=== PATIENT | female | born 1960 | race Caucasian/White ===

== ENCOUNTER → 2017-05-20 | Outpatient (CLI) | payer OTHER ==
[~2017-05-20] VITALS: Ht 172.7 cm; Wt 83.9 kg
[~2017-05-20] MED LIST: ENBREL SQ; ENBREL50 MG/1 ML SUBQ; IBUPROFEN 400400 M1 OR; IMODIUM A-D2 MG PO; LOMOTIL TABLET1 EACH PO; RITALIN PO; ZOFRAN ODT4 MG PO
--- NOTE | ~2017-05-20 | S ---
[facility] [place] [address] SURGICAL PATH RPT PROCEDURE Name: ADITHYA MANN Room #: REG CLRaymundo HewittMaggi.#: [id number] Admission: 05/20/17 Date of : 62 Discharge: Report #: [id number] Path Case #: [id number] PATHOLOGY REPORT COLLECTION DATE: 05/20/2017 RECEIVED DATE: 05/20/2017 SUBMITTING PHYS: Dr. Wilber Reed OTHER PHYS: Dr. Kathia Hathaway SPECIMEN(S) RECEIVED: A.Biopsy of anal verge * * * * * * * * * * * * FINAL DIAGNOSIS: "Biopsy of anal verge", biopsy: - Small bowel / colonic mucosa with reactive changes and glandular architectural disarray consistent with previous anastomosis site and reactive appearing lymphoid aggregates; no significant inflammation or dysplasia seen. (CLW:hakeem; 05/23/2017) PATHOLOGIST: Liyah Mcgill M.D. REPORT ELECTRONICALLY SIGNED BY: Liyah Mcgill M.D. DATE/TIME: 05/23/2017 22:15 * * * * * * * * * * * * GROSS PATHOLOGY: Received in formalin labeled "Adithya Mann BX of anal verge r/o dysplasia," are 5 segments of valle soft tissue measuring 1.5 x 1.0 x 0.3 cm in aggregate dimensions and ranging from 0.2 to 0.3 cm in maximum dimension. The specimen is submitted entirely in cassette A1. (TSD; 05/20/2017) CLINICAL HISTORY: Pre-OP DX: Hx colitisHX colectomy and J-pouch Post-OP DX: ileoscopy and BX, Hx of ulcerative colitis and J-pouch INITIAL CPT CODE(S): A; 47455 Professional services performed by [facility] at [facility] [address], [place] [address] Technical services performed by [facility] at [address] [place] [address], [facility] [address] [address]. [facility] [address] [place] [address] SURGICAL PATH RPT PROCEDURE Name: ADITHYA MANN Room #: REG CRYSTAL Rosenberg#: [id number] Admission: 05/20/17 Date of : 62 Discharge: Report #: [id number] Path Case #: [id number] [address] PHONE: [phone] DIRECTOR: Remy Arechiga M.D. * * * END OF REPORT * * *
--- NOTE | ~2017-05-20 | P ---
[facility] [place] [address] PROCEDURE REPORT Name: ADITHYA FRAGA DANIELA Room #: REG [facility].#: [id number] Admission: 05/20/17 Attend Phys: Wilber Reed MD Discharge: Date of : 62 Report #: [id number] THIS REPORT FOR: //name// CC: Wilber Castillo BRIEF HISTORY: The patient is a 56-year-old woman well known to me with a history of chronic ulcerative colitis with total abdominopelvic colectomy with a J-pouch and ileoanal anastomosis. PREOPERATIVE DIAGNOSIS: History of ulcerative colitis, status post colectomy with a J-pouch and ileoanal anastomosis. POSTOPERATIVE DIAGNOSIS: History of ulcerative colitis, status post colectomy with a J-pouch and ileoanal anastomosis. MEDICATIONS: Deep sedation with propofol per anesthesia. SPECIMEN: Biopsies of anal verge. ESTIMATED BLOOD LOSS: 3 mL. PROCEDURE: Ileoscopy with biopsy. FINDINGS: Prior to propofol sedation, procedure of ileoscopy was reviewed with the patient as well as potential risks and its complications. She indicates she understands and desires to proceed. DESCRIPTION OF PROCEDURE: With the patient in the left lateral decubitus position, digital examination was completed, which revealed no abnormalities. There was no evidence of perianal disease. The anal canal was a little stenotic as expected but otherwise unremarkable. Subsequently, a [employer] video upper endoscope was inserted through the anus and into the J-pouch without difficulty. Examination of the J-pouch revealed normal mucosa. There was no evidence of pouchitis. No ulcers were seen. The J-pouch anastomosis was unremarkable. The scope was advanced to the proximal margin of the blind end of the J-pouch, which was noted to be unremarkable. The scope was also advanced into the ileal limb. The mucosa was normal. No ulcers or erosions were seen. No masses were seen. At that point, the scope was slowly withdrawn, and careful circumferential views were obtained. The mucosa was within normal limits, normal vascular pattern and normal light reflex. The scope was retroflexed in the distal pouch. Upon retroflexion, the anastomosis was identified, and there appeared to be a new narrow band of rectal mucosa, and multiple biopsies were obtained. The mucosa was flat and not ulcerated. Scope was withdrawn. The patient tolerated the procedure well. [address] [address] PROCEDURE REPORT Name: ADITHYA FRAGA DANIELA Room #: REG CRYSTAL Rosenberg#: [id number] Admission: 05/20/17 Attend Phys: Wilber Reed MD Discharge: Date of : 62 Report #: [id number] CONDITION OF THE PATIENT UPON DISCHARGE: Following procedure, the patient was drowsy and will be discharged home when fully ambulatory. INSTRUCTIONS TO THE PATIENT AND FAMILY AT THE TIME OF DISCHARGE: The anastomosis is intact. There is no evidence of pouchitis. We will follow up on biopsies and make further recommendations. If there is no evidence of dysplasia, we will have her return in 3 years for followup ileoscopy and biopsy. She is to return on an as-needed basis. <ELECTRONICALLY SIGNED> By: Wilber Reed MD 05/26/17 1200 [id number] [id number] Wilber Reed MD /nt
== END | disposition home or self-care (01) ==
LOC: GI 07:56
DX: Z09 Encounter for follow-up examination after completed treatment for conditions other than malignant neoplasm (principal); K52.89 Other specified noninfective gastroenteritis and colitis; Z98.0 Intestinal bypass and anastomosis status; Z90.49 Acquired absence of other specified parts of digestive tract
CPT/HCPCS: 62110; 62900